=== PATIENT | male | born 1940 | race Caucasian/White ===

== ENCOUNTER 2021-05-19 10:57 | Emergency (ER) | payer MEDICARE ==
[~2021-05-19] VITALS: Ht 180.3 cm; Wt 79.5 kg
[2021-05-19 11:23] LABS: BASOPHILS # (AUTO) 0.1 X10'3 (0-0.2); BASOPHILS % (AUTO) 1.1 % (0-1); EOSINOPHILS # (AUTO) 0.3 X10'3 (0-0.9); EOSINOPHILS % (AUTO) 5.1 % (0-6); HEMATOCRIT 40.1 % (42.0-52.0); HEMOGLOBIN 13.5 g/dl (14.0-17.9); LYMPHOCYTES % (AUTO) 16.4 % (21-51); MEAN CORPUSCULAR HEMOGLOBIN 31.8 PG (27.0-31.0); MEAN CORPUSCULAR HGB CONC 33.5 g/dL (33.0-36.5); MEAN PLATELET VOLUME 8.6 FL (7.4-10.4); MONOCYTES # (AUTO) 0.5 X10'3 (0-0.9); MONOCYTES % (AUTO) 8.2 % (2-12); NEUTROPHILS # (AUTO) 4.4 X10'3 (1.8-7.7); NEUTROPHILS % (AUTO) 69.2 % (42-75); PLATELET COUNT 182 X10'3 (140-440); RED BLOOD COUNT 4.22 X10'6 (4.70-6.10); RED CELL DISTRIBUTION WIDTH 14.5 % (11.5-14.5); WHITE BLOOD COUNT 6.4 X10'3 (4.5-11.0)
[2021-05-19 11:35] LABS: ALANINE AMINOTRANSFERASE 24 U/L (12-78); ALBUMIN 3.2 G/DL (3.4-5.0); ALBUMIN/GLOBULIN RATIO 0.8 (1.1-1.5); ALKALINE PHOSPHATASE 124 IU/L (46-116); ANION GAP 11 (8-16); ASPARTATE AMINO TRANSFERASE 51 U/L (10-37); BILIRUBIN,TOTAL 0.5 MG/DL (0.1-1.0); BLOOD UREA NITROGEN 31 MG/DL (7-18); CALCIUM 8.4 MG/DL (8.5-10.1); CHLORIDE 109 MMOL/L (99-107); CREATININE 2.22 MG/DL (0.60-1.10); GLUCOSE 166 MG/DL (70-104); POTASSIUM 4.8 MMOL/L (3.5-5.1); SODIUM 144 MMOL/L (135-145); TOTAL CARBON DIOXIDE 24.5 MMOL/L (24-32); TOTAL PROTEIN 7.1 G/DL (6.4-8.2); eGFR 29 ML/MIN
[2021-05-19 16:17] VITALS: BP 155/72
[2021-05-19] MEDS ORDERED: ONDA4TAB6 PO (17:01)
== END 2021-05-19 17:15 | disposition home or self-care (01) ==
LOC: ER 10:57
DX: R10.84 Generalized abdominal pain (principal); R11.0 Nausea; E78.00 Pure hypercholesterolemia, unspecified; K21.9 Gastro-esophageal reflux disease without esophagitis; N18.9 Chronic kidney disease, unspecified; Z88.2 Allergy status to sulfonamides; Z79.899 Other long term (current) drug therapy
CPT/HCPCS: 36415; 71045; 80053; 83880; 84484; 85025; 93005; 99285

== ENCOUNTER 2024-04-24 07:01 | Day surgery (SDC) | payer MEDICARE, BC ==
[2024-04-23 12:29] LABS: BASOPHILS # (AUTO) 0.1 X10'3 (0-0.2); BASOPHILS % (AUTO) 1.1 % (0-1); EOSINOPHILS # (AUTO) 0.3 X10'3 (0-0.9); EOSINOPHILS % (AUTO) 4.5 % (0-6); HEMATOCRIT 40.7 % (42.0-52.0); HEMOGLOBIN 13.1 g/dl (14.0-17.9); LYMPHOCYTES # (AUTO) 1.1 X10'3 (1.1-4.8); LYMPHOCYTES % (AUTO) 16.6 % (21-51); MEAN CORPUSCULAR HEMOGLOBIN 29.6 PG (27.0-31.0); MEAN CORPUSCULAR HGB CONC 32.1 g/dL (33.0-36.5); MEAN CORPUSCULAR VOLUME 92.2 FL (78-98); MEAN PLATELET VOLUME 9.6 FL (7.4-10.4); MONOCYTES # (AUTO) 0.5 X10'3 (0-0.9); MONOCYTES % (AUTO) 6.8 % (2-12); NEUTROPHILS # (AUTO) 4.9 X10'3 (1.8-7.7); PLATELET COUNT 194 X10'3 (140-440); RED BLOOD COUNT 4.42 X10'6 (4.70-6.10); RED CELL DISTRIBUTION WIDTH 17.4 % (11.5-14.5); WHITE BLOOD COUNT 6.9 X10'3 (4.5-11.0)
[2024-04-23 12:37] LABS: ALBUMIN 3.3 G/DL (3.4-5.0); ANION GAP 10 (8-16); BLOOD UREA NITROGEN 44 MG/DL (7-18); BUN/CREATININE RATIO 15.3 (10.0-20.0); CHLORIDE 102 MMOL/L (99-107); CREATININE 2.88 MG/DL (0.60-1.10); GLUCOSE 182 MG/DL (70-104); POTASSIUM 4.3 MMOL/L (3.5-5.1); SODIUM 141 MMOL/L (135-145); TOTAL CARBON DIOXIDE 28.8 MMOL/L (24-32); eGFR 21 ML/MIN
[2024-04-23 12:41] LABS: APTT 25 SECONDS (22-32); PROTHROMBIN TIME 10.4 SECONDS (9.0-12.0)
[~2024-04-24] VITALS: Ht 177.8 cm; Wt 72.7 kg
[2024-04-24] VITALS (10 sets, daily range): BP systolic 108–154; BP diastolic 54–96; PULSE 60–64; RESP 12–15; TEMP 98.1; O2SAT 95–98
[~2024-04-24 07:01] MED LIST: ONDA4TAB6 PO; cefazolin 2gm/D5W 100mL 100 ML IV ONE
[2024-04-24] MEDS: normal saline 1,000 ML IV SCH (07:30)
[2024-04-24] MEDS ORDERED: TADA2.5T3 PO (07:39)
[2024-04-24] MEDS ORDERED: FINA5TAB11 PO (07:39)
[2024-04-24] MEDS ORDERED: OMEP20CA16 PO (07:39)
[2024-04-24] MEDS ORDERED: ALLO200T PO (07:39)
[2024-04-24] MEDS ORDERED: AMLO10TA13 PO (07:39)
[2024-04-24] MEDS ORDERED: CARV-50 PO (07:39)
[2024-04-24] MEDS ORDERED: FURO40TA4 PO (07:39)
[2024-04-24] MEDS ORDERED: DOXA1TAB2 PO (07:39)
[2024-04-24] MEDS ORDERED: FERR324T4 PO (07:39)
[2024-04-24] MEDS ORDERED: ERGO2000 PO (07:39)
[2024-04-24] MEDS ORDERED: DIGO125T2 PO (07:39)
[2024-04-24] MEDS ORDERED: ACET-1025 PO (07:41)
[2024-04-24] MEDS ORDERED: midazolam 1 mg/ML 2ml injection ONE (10:40)
[2024-04-24] MEDS ORDERED: LIDOcaine 1% w/EPI 1:100,000 inj. MDV 50 ML VIAL ONE (10:40)
[2024-04-24] MEDS ORDERED: ceFAZolin 1000mg inj ONE (10:40)
[2024-04-24] MEDS ORDERED: fentaNYL/PF 50MCG/1 ML 2ML syringe ONE (10:40)
[2024-04-24] MEDS ORDERED: diphenhydrAMINE 50 mg/ml inj ONE (11:38)
[2024-04-24] MEDS ORDERED: iohexol 350 MG/ML 50ML vial IV ONE (11:52)
[2024-04-24] MEDS ORDERED: HYDROcodone/acetaminophen 5mg/325mg tablet PO PRN (13:25)
[2024-04-24] MEDS: vancomycin/NS 1 GM ADD-VANTAGE 250 ML X 1 DOSE IV ONE (15:07)
[2024-04-24] MEDS: HYDROcodone/acetaminophen 10/325mg tab PO PRN (15:07)
== END 2024-04-24 17:00 | disposition home or self-care (01) ==
LOC: SSTAY O 07:01
PROVIDERS: ATTEND Internal Medicine Cardiovascular Disease
DX: Z45.010 Encounter for checking and testing of cardiac pacemaker pulse generator [battery] (principal); I49.5 Sick sinus syndrome; I12.9 Hypertensive chronic kidney disease with stage 1 through stage 4 chronic kidney disease, or unspecified chronic kidney disease; N18.9 Chronic kidney disease, unspecified; I25.10 Atherosclerotic heart disease of native coronary artery without angina pectoris; E78.5 Hyperlipidemia, unspecified; G47.33 Obstructive sleep apnea (adult) (pediatric); K21.9 Gastro-esophageal reflux disease without esophagitis; M10.9 Gout, unspecified; Z85.01 Personal history of malignant neoplasm of esophagus; Z79.899 Other long term (current) drug therapy; Z98.890 Other specified postprocedural states; Z88.2 Allergy status to sulfonamides; Z82.5 Family history of asthma and other chronic lower respiratory diseases
CPT/HCPCS: 33206; 36415; 71046; 80048; 85025; 85610; 85730; 93005; 99152; 99153; A4565; A6402; C1758; C1785; C1898; J0690; J1200; J2250; J3010; J3370; J3490; J7030; Q9967; Z7610; 33216; 33228; A4314; A6449